=== PATIENT | female | born 1945 | race Caucasian/White ===

== ENCOUNTER 2017-09-14 00:40 | Observation (INO) ==
[2017-09-14] MEDS ORDERED: Morphine Sulfate Inj 8 MG/ML Vial IV.PUSH ONE (02:11)
[2017-09-14] MEDS ORDERED: Sod Chloride 0.9% Inj 1,000 ML IV.SIG ONE ×2 (02:11)
--- NOTE | 2017-09-14 02:30 | ED ---
HPI General Chief Complaint: Abdominal Pain Stated Complaint: Abd pain Time Seen by Provider: 09/14/17 02:00 History of Present Illness HPI narrative: Is a 72-year-old woman presents emerged department abdominal pains are about 5 PM today. Said nausea vomiting is been ongoing since his evening as well. This started after the abdominal pain. Abdominal pain started gradually, and has been worsening since onset. She had one episode of loose stools. No significant diarrhea. No urinary symptoms. Only abdominal surgical history is cholecystectomy and appendectomy. She does not use NSAIDs. She does not drink alcohol regularly she has some GERD history in the past but states this is been unchanged recently. Never had previous similar symptoms. No sick contacts. Related Data Home Medications Medication Instructions Recorded Confirmed amlodipine 5 mg PO DAILY 09/14/17 09/14/17 apixaban [Eliquis] 5 mg PO BID 09/14/17 09/14/17 aspirin 81 mg PO DAILY 09/14/17 09/14/17 benazepril 40 mg PO BID 09/14/17 09/14/17 escitalopram oxalate 20 mg PO DAILY 09/14/17 09/14/17 levothyroxine 75 mcg PO DAILY 09/14/17 09/14/17 metformin 850 mg PO BID 09/14/17 09/14/17 metoprolol succinate 50 mg PO BID 09/14/17 09/14/17 simvastatin 40 mg PO QPM 09/14/17 09/14/17 Allergies Allergy/AdvReac Type Severity Reaction Status Date / Time cefazolin Allergy Mild RASH Verified 09/14/17 01:30 Review of Systems ROS Unobtainable All other systems reviewed negative except as stated in HPI PMFSH History History Provided By: Patient and Family Member Medical History Medical History Anxiety (Acute) Diabetes (Acute) HLD (hyperlipidemia) (Acute) HTN (hypertension) (Acute) Hypothyroid (Acute) Pacemaker (Acute) Social History Social History Recent Travel in [facility] within the Last 8 Weeks: No Recent Out of Country Travel within the Last 8 Weeks: No Exam Narrative Exam Narrative: GENERAL: Well-appearing 72-year-old woman, appears uncomfortable , nontoxic. SKIN: Focused skin assessment warm/dry. HEAD: Atraumatic. Normocephalic. EYES: Pupils equal and round. No scleral icterus. No injection or drainage. ENT: No nasal bleeding or discharge. Mucous membranes pink and moist. NECK: Trachea midline. No JVD. CARDIOVASCULAR: Regular rate and rhythm. No murmur appreciated. RESPIRATORY: No accessory muscle use. Clear to auscultation. Breath sounds equal bilaterally. GASTROINTESTINAL: Abdomen is full, soft, minimal upper abdominal tenderness. No rebound or guarding. MUSCULOSKELETAL: No obvious deformities. No clubbing. No cyanosis. No edema. NEUROLOGICAL: Awake and alert. No obvious cranial nerve deficits. Motor grossly within normal limits. Normal speech. PSYCHIATRIC: Appropriate mood and affect; insight and judgment normal. Course Initial Documented Vital Signs Temperature 98.5 F 09/14/17 01:28 Pulse Rate 60 09/14/17 01:28 Respiratory Rate 20 09/14/17 01:28 Blood Pressure 164/100 H 09/14/17 01:28 Pulse Oximetry 99 09/14/17 01:28 Last Documented Vital Signs Temperature 98.5 F 09/14/17 01:28 Pulse Rate 80 09/14/17 01:30 Respiratory Rate 16 09/14/17 01:30 Blood Pressure 146/88 H 09/14/17 01:30 Pulse Oximetry 93 L 09/14/17 01:30 Medical Decision Making MDM Narrative Medical decision making narrative: 72-year-old woman, abdominal pain worsening since 5 PM, more upper, so she was some nausea and vomiting multiple episodes. She has her gallbladder out already. Mild GERD symptoms fairly benign exam. Will check labs, CT, UA, reassess. Feeling somewhat improved. Lactate is elevated, white count elevated, patient with unexplained severe epigastric pain. Given her age, high risk for occult disease, her abnormal labs, recommend observation. Lab Data Result diagrams: 09/14/17 02:30 09/14/17 02:30 Lab Results 09/14/17 09/14/17 09/14/17 Range/Units 02:30 02:30 02:30 WBC 15.6 H (4.0-11.0) th/mm3 RBC 5.09 (4.00-5.30) mil/mm3 Hgb 15.3 (11.6-15.3) gm/dL Hct 46.7 H (35.0-46.0) % MCV 91.8 (80.0-100.0) fL MCH 30.1 (27.0-34.0) pg MCHC 32.8 (32.0-36.0) % RDW 14.5 (11.6-17.2) % Plt Count 283 (150-450) th/mm3 MPV 8.6 (7.0-11.0) fL Neut % (Auto) 81.2 H (16.0-70.0) % Lymph % (Auto) 13.4 (9.0-44.0) % [place] % (Auto) 5.1 (0.0-8.0) % Eos % (Auto) 0.1 (0.0-4.0) % Baso % (Auto) 0.2 (0.0-2.0) % Neut # (Auto) 12.7 H (1.8-7.7) th/mm3 Lymph # (Auto) 2.1 (1.0-4.8) th/mm3 [place] # (Auto) 0.8 (0.0-0.9) th/mm3 Eos # (Auto) 0.0 (0.0-0.4) th/mm3 Baso # (Auto) 0.0 (0.0-0.2) th/mm3 WBC Differential . Differential Comment Auto diff final Sodium 134 L (136-145) meq/L Potassium 3.6 (3.5-5.1) meq/L Chloride 97 L (98-107) meq/L Carbon Dioxide 24.1 (21.0-32.0) meq/L Anion Gap 13 (5-15) meq/L BUN 11 (7-18) mg/dL Creatinine 0.74 (0.50-1.00) mg/dL Estimated GFR 77 L (>89) mL/min Random Glucose 187 H (74-106) mg/dL Lactic Acid 3.0 H (0.4-2.0) mmol/L Calcium 9.7 (8.5-10.1) mg/dL Total Bilirubin 0.3 (0.2-1.0) mg/dL AST 19 (15-37) U/L ALT 32 (10-53) U/L Alkaline Phosphatase 118 H (45-117) U/L Troponin I Less than 0.02 L (0.02-0.05) ng/mL Total Protein 8.0 (6.4-8.2) g/dL Albumin 4.4 (3.4-5.0) g/dL Lipase 114 (73-393) U/L Urine Color (Yellw/Straw) Urine Clarity (Clear) Urine pH (5.0-8.5) Ur Specific [place] (1.002-1.035) Urine Protein (Neg-Trace) mg/dL Urine Glucose (UA) (Negative) mg/dL Urine Ketones (Negative) mg/dL Urine Occult Blood (Negative) Urine Nitrate (Negative) Urine Bilirubin (Negative) Urine Urobilinogen (Less than 2) mg/dL Ur Leukocyte Esterase (Negative) Urine RBC (0-3) /hpf Urine WBC (0-5) /hpf Ur Squamous Epith Cells (0-5) /hpf Urine Mucus (Occasional) /lpf Micro UA Comment Urine Culture Comments 09/14/17 Range/Units 03:35 WBC (4.0-11.0) th/mm3 RBC (4.00-5.30) mil/mm3 Hgb (11.6-15.3) gm/dL Hct (35.0-46.0) % MCV (80.0-100.0) fL MCH (27.0-34.0) pg MCHC (32.0-36.0) % RDW (11.6-17.2) % Plt Count (150-450) th/mm3 MPV (7.0-11.0) fL Neut % (Auto) (16.0-70.0) % Lymph % (Auto) (9.0-44.0) % [place] % (Auto) (0.0-8.0) % Eos % (Auto) (0.0-4.0) % Baso % (Auto) (0.0-2.0) % Neut # (Auto) (1.8-7.7) th/mm3 Lymph # (Auto) (1.0-4.8) th/mm3 [place] # (Auto) (0.0-0.9) th/mm3 Eos # (Auto) (0.0-0.4) th/mm3 Baso # (Auto) (0.0-0.2) th/mm3 WBC Differential Differential Comment Sodium (136-145) meq/L Potassium (3.5-5.1) meq/L Chloride (98-107) meq/L Carbon Dioxide (21.0-32.0) meq/L Anion Gap (5-15) meq/L BUN (7-18) mg/dL Creatinine (0.50-1.00) mg/dL Estimated GFR (>89) mL/min Random Glucose (74-106) mg/dL Lactic Acid (0.4-2.0) mmol/L Calcium (8.5-10.1) mg/dL Total Bilirubin (0.2-1.0) mg/dL AST (15-37) U/L ALT (10-53) U/L Alkaline Phosphatase (45-117) U/L Troponin I (0.02-0.05) ng/mL Total Protein (6.4-8.2) g/dL Albumin (3.4-5.0) g/dL Lipase (73-393) U/L Urine Color Straw (Yellw/Straw) Urine Clarity Hazy H (Clear) Urine pH 8.0 (5.0-8.5) Ur Specific [place] 1.009 (1.002-1.035) Urine Protein 500 or greater (Neg-Trace) mg/dL Urine Glucose (UA) 150 H (Negative) mg/dL Urine Ketones 20 (Negative) mg/dL Urine Occult Blood Small H (Negative) Urine Nitrate Negative (Negative) Urine Bilirubin Negative (Negative) Urine Urobilinogen Less than 2 (Less than 2) mg/dL Ur Leukocyte Esterase Negative (Negative) Urine RBC 3 (0-3) /hpf Urine WBC 4 (0-5) /hpf Ur Squamous Epith Cells <1 (0-5) /hpf Urine Mucus Few H (Occasional) /lpf Micro UA Comment Culture not ind Urine Culture Comments Culture not ind Imaging Data Radiologist's impression: Abdomen/Pelvis CT 09/14/17 02:11 CONCLUSION: 1. Mild extrahepatic biliary ductal dilatation which has been described previously. Correlate with liver function lab studies. Pneumobilia which implies previous biliary intervention. Gallbladder surgically absent. 2. Distal colonic diverticulosis without definite findings of diverticulitis. 3. Minimal nonspecific free pelvic fluid. ECG Data Attestation: I personally reviewed and interpreted this ECG as follows: Interpretation: AV sequential pacing at a rate of 84, leftward axis, no definite evidence of acute ischemia. Discharge Plan Discharge Disposition Patient Disposition: 30 Still Patient Physicians Team ED Provider: Lenny Damian Primary Care Provider: Wimla Robledo Attending Provider: Shabnam Meeks Discharge Interventions Interventions: Vital Signs Last Done: 09/14/17 01:30 Status ED Status: Admitted Observation Patient
[2017-09-14 03:11] LABS: Alanine Aminotransferase 32 U/L (10-53); Albumin 4.4 g/dL (3.4-5.0); Anion Gap 13 meq/L (5-15); Aspartate Aminotransferase 19 U/L (15-37); Blood Urea Nitrogen 11 mg/dL (7-18); Calcium 9.7 mg/dL (8.5-10.1); Carbon Dioxide 24.1 meq/L (21.0-32.0); Chloride 97 meq/L (98-107); Glomerular Filtration Rate 77 mL/min (>89); Glucose,Random 187 mg/dL (74-106); Lipase 114 U/L (73-393); Potassium 3.6 meq/L (3.5-5.1); Sodium 134 meq/L (136-145)
[2017-09-14 03:15] LABS: Alkaline Phosphatase 118 U/L (45-117); Baso % (Auto) 0.2 % (0.0-2.0); Eos % (Auto) 0.1 % (0.0-4.0); Hematocrit 46.7 % (35.0-46.0); Hemoglobin 15.3 gm/dL (11.6-15.3); Lymph # (Auto) 2.1 th/mm3 (1.0-4.8); Lymph % (Auto) 13.4 % (9.0-44.0); Mean Corpuscular HGB Conc 32.8 % (32.0-36.0); Mean Corpuscular Hemoglobin 30.1 pg (27.0-34.0); Mean Corpuscular Volume 91.8 fL (80.0-100.0); Mean Platelet Volume 8.6 fL (7.0-11.0); Mono # (Auto) 0.8 th/mm3 (0.0-0.9); Mono % (Auto) 5.1 % (0.0-8.0); Neut # (Auto) 12.7 th/mm3 (1.8-7.7); Neut % (Auto) 81.2 % (16.0-70.0); Platelet Count 283 th/mm3 (150-450); Red Blood Count 5.09 mil/mm3 (4.00-5.30); Red Cell Distribution Width 14.5 % (11.6-17.2); White Blood Count 15.6 th/mm3 (4.0-11.0)
[2017-09-14 04:06] LABS: Bilirubin,Urine Negative (Negative); Clarity,Urine Hazy (Clear); Color,Urine Straw (Yellw/Straw); Glucose,Urine (UA) 150 mg/dL (Negative); Leukocyte Esterase,Urine Negative (Negative); Mucus,Urine Few /lpf (Occasional); Nitrite,Urine Negative (Negative); Specific Gravity,Urine 1.009 (1.002-1.035); Squamous Epithelial Cell,Urine <1 /hpf (0-5)
--- NOTE | 2017-09-14 05:15 | CT ---
EXAM DATE: 09/14/2017 3:49 AM EDT AGE/SEX: 72 years / Female INDICATIONS: Abdominal pain. CLINICAL DATA: This is the patient's initial encounter. Patient reports that signs and symptoms have been present for 2 days and indicates a pain score of 6/10. MEDICAL/SURGICAL HISTORY: Diabetes. Hypertension. Hyperthyroidism. Pacemaker. ORAL CONTRAST: No oral contrast ingested. RADIATION DOSE: 6.57 CTDI (mGy) COMPARISON: POI, US ABDOMEN COMPLETE, 01/30/2015. . TECHNIQUE: Multiple contiguous axial images were obtained through the abdomen and pelvis following b olus infusion of 71 ml Omnipaque 350 (iohexol) nonionic water-soluble contrast as a single exam dos e. No oral contrast ingested. Using automated exposure control and adjustment of the mA and/or kV ac cording to patient size, radiation dose was kept as low as reasonably achievable to obtain optimal di agnostic quality images. DICOM format image data is available electronically for review and comparis on. FINDINGS: Lower Lungs: The visualized lower lungs are clear. Liver: Pneumobilia is present. Gallbladder is surgically absent. The extrahepatic biliary tree is mil dly dilated which has been described previously. Common duct diameter approaches 14 mm. There is no e vidence of focal liver mass. Spleen: Homogeneous density without enlargement. Pancreas: Unremarkable without mass or calcification. Kidneys: Normal in size and shape. No evidence of mass or hydronephrosis. Adrenal Glands: Unremarkable. Aorta: The aorta and proximal iliac vessels are grossly unremarkable without aneurysmal dilation. Bowel/Mesentery: Prominent distal colonic diverticulosis. No definite focal inflammatory changes. No abnormal dilatation of bowel. Minimal free pelvic fluid. Abdominal Wall: Intact. Retroperitoneum: No evidence of adenopathy in the retrocrural, para-aortic, or deep pelvic regions. Bladder: Contours are smooth. Reproductive Organs: No abnormal masses or calcifications seen. Inguinal: The inguinal region is unremarkable without evidence of adenopathy. Bony Structures: Unremarkable. CONCLUSION: 1. Mild extrahepatic biliary ductal dilatation which has been described previously. Correlate with l iver function lab studies. Pneumobilia which implies previous biliary intervention. Gallbladder surgi thom absent. 2. Distal colonic diverticulosis without definite findings of diverticulitis. 3. Minimal nonspecific free pelvic fluid. Electronically signed by: Devendra Khan MD 09/14/2017 5:13 AM EDT
[2017-09-14] MEDS ORDERED: Dextrose 50% in Water 50 ML Vial IV.PUSH PRN (05:53)
[2017-09-14] MEDS ORDERED: Acetaminophen 325 MG Tablet PO PRN (05:55)
[2017-09-14] MEDS ORDERED: Bisacodyl 10 MG Supp RECTAL PRN (05:55)
[2017-09-14] MEDS ORDERED: Temazepam 15 MG Capsule PO PRN (05:55)
[2017-09-14] MEDS: Morphine Inj 4 MG/ML Vial IV.PUSH PRN ×3 (07:51→18:10)
[2017-09-14] MEDS: Sod Chloride 0.9% Inj 1,000 ML IV.CONT SCH ×2 (07:53→17:56)
[2017-09-14] MEDS: Levothyroxine 75 MCG Tablet PO SCH (08:37)
[2017-09-14] MEDS: Lisinopril 20 MG Tablet PO SCH ×2 (08:38→22:54)
[2017-09-14] MEDS: Senna/Docusate Sodium 8.6/50 MG Tablet PO SCH ×2 (08:38→22:53)
[2017-09-14] MEDS: amLODIPine 5 MG Tablet PO SCH (08:38)
[2017-09-14] MEDS: Insulin NovoLOG Aspart Correctional Sugar Inj SQ SCH ×4 (09:15→22:52)
--- NOTE | 2017-09-14 18:28 | P.HP ---
History of Present Illness Primary Care Physician: Wilma Robledo MD Chief Complaint: abdominal pain History of Present Illness: 72-year-old female with history of atrial fibrillation on Eliquis, cardiac pauses status post pacemaker, diabetes, hypertension, hyperlipidemia, hypothyroidism, tobacco use, presents with a one-day history of abdominal pain. The patient reports yesterday afternoon she went out for tacos at [facility] , and around 5 PM she started to develop diffuse upper crampy abdominal pain. She went home, and later had 3 episodes of nausea and vomiting with nonbloody emesis around 89 PM therefore she decided to come to the hospital. She also reports one episode of loose stools. Denies any hematochezia or melena. Denies any fevers or chills. Upon arrival to the ED, the patient had 2 more episodes of vomiting. She denies any urinary complaints. Denies any chest pain , palpitations, shortness of breath. She denies any sick contacts. Denies NSAID use. She sees Dr. Coleman with [facility], and recently had an unremarkable colonoscopy around 2 months ago. Her kiln mechanic is Dr. Pozo. Past Medical History: atrial fibrillation on Eliquis cardiac pauses status post pacemaker diabetes hypertension hyperlipidemia hypothyroidism anxiety Past Surgical History: Appendectomy Cholecystectomy Pacemaker placement Right leg femoral-popliteal bypass Colonoscopy Family history: Mother with emphysema Father with heart disease Social history: Has smoked tobacco 1 PPD on/off for 40 years, continues to smoke 1PPD currently Very seldom alcohol use every 1-2 months Denies any illicit drug use Review of Systems All other systems reviewed negative except as stated in HPI [facility] - History History Provided By: Patient - Medical History Medical History: Medical History (Last Reviewed 09/14/17 @ 02:30 by Lenny Damian MD) Anxiety Diabetes HLD (hyperlipidemia) HTN (hypertension) Hypothyroid Pacemaker - Tobacco History Second Hand Smoke Exposure: No Smoking Status: Current every day smoker Tobacco Type: Cigarettes - Alcohol History How Often Do You Have a Drink Containing Alcohol: Monthly or less - Substance Use History Substance History: No History of Abuse - Travel History Recent Travel in the [facility] Within the Last 8 Weeks: No Recent Travel Out of the Country Within the Last 8 Weeks: No Medications and Allergies Active Medications: Active Medications Acetaminophen (Tylenol) 650 mg PO Q4H PRN PRN Reason: Temp > 100.4 Al Hydroxide/Mg Hydroxide (Milk Of Magnesia Liq) 30 ml PO Q12H PRN PRN Reason: Mild Constipation Amlodipine Besylate (Norvasc) 5 mg PO DAILY [facility] Last Admin: 09/14/17 08:38 Dose: 5 mg Apixaban (Eliquis) 5 mg PO BID [facility] Last Admin: 09/14/17 08:39 Dose: 5 mg Aspirin (Aspirin Chew) 81 mg PO DAILY [facility] Last Admin: 09/14/17 08:44 Dose: Not Given Bisacodyl (Dulcolax Supp) 10 mg RECTAL DAILY PRN PRN Reason: SEVERE CONSITIPATION Dextrose (D50w Vial) 50 ml IV.PUSH UNSCH PRN PRN Reason: PER HYPOGLYCEMIA PROTOCOL Escitalopram Oxalate (Lexapro) 20 mg PO DAILY [facility] Last Admin: 09/14/17 08:39 Dose: 20 mg Glucagon (Glucagon Inj) 1 mg OTHER PRN PRN PRN Reason: for Hypoglycemia Protocol Sodium Chloride (Ns Inj) 1,000 mls @ 100 mls/hr IV.CONT .Q10H [facility] Last Admin: 09/14/17 07:53 Dose: 100 mls/hr Insulin Aspart (Novolog Insulin Suppl Scale Inj) 0 unit SQ ACHS [facility]; Protocol Last Admin: 09/14/17 14:32 Dose: Not Given Lactulose (Lactulose Liq) 30 ml PO DAILY PRN PRN Reason: SEVERE CONSITIPATION Levothyroxine Sodium (Synthroid) 75 mcg PO DAILY@0600 [facility] Last Admin: 09/14/17 08:37 Dose: 75 mcg Lisinopril (Prinivil) 40 mg PO BID [facility] Last Admin: 09/14/17 08:38 Dose: 40 mg Metoclopramide HCl (Reglan Inj) 5 mg IV.PUSH Q6HR PRN; Protocol PRN Reason: NAUSEA OR VOMITING Morphine Sulfate (Morphine Inj) 2 mg IV.PUSH Q4H PRN PRN Reason: PAIN SCALE 6 TO 10 Last Admin: 09/14/17 13:30 Dose: 2 mg Prochlorperazine Edisylate (Compazine Inj) 10 mg IV.PUSH Q6H PRN PRN Reason: NAUSEA/VOMITING Senna/Docusate Sodium (Kaylyn-Colace) 1 tab PO BID [facility] Last Admin: 09/14/17 08:38 Dose: 1 tab Sennosides (Senokot) 17.2 mg PO Q12H PRN PRN Reason: Moderate Constipation Sodium Chloride (Ns Flush) 2 ml IV.FLUSH PRN PRN PRN Reason: FLUSH AFTER USING IV ACCESS Temazepam (Restoril) 15 mg PO HS PRN PRN Reason: INSOMNIA Allergies Allergy/AdvReac Type Severity Reaction Status Date / Time cefazolin Allergy Mild RASH Verified 09/14/17 01:30 Home Medications Medication Instructions Recorded Confirmed Type amlodipine 5 mg PO DAILY 09/14/17 09/14/17 History apixaban [Eliquis] 5 mg PO BID 09/14/17 09/14/17 History aspirin 81 mg PO DAILY 09/14/17 09/14/17 History benazepril 40 mg PO BID 09/14/17 09/14/17 History escitalopram oxalate 20 mg PO DAILY 09/14/17 09/14/17 History levothyroxine 75 mcg PO DAILY 09/14/17 09/14/17 History metformin 850 mg PO BID 09/14/17 09/14/17 History metoprolol succinate 50 mg PO BID 09/14/17 09/14/17 History simvastatin 40 mg PO QPM 09/14/17 09/14/17 History Exam Vital signs: Vital Signs 09/14/17 01:28 09/14/17 01:30 09/14/17 07:15 Temperature 98.5 F Pulse Rate 60 80 88 Respiratory Rate 20 16 18 Blood Pressure 164/100 H 146/88 H 173/82 H Pulse Oximetry 99 93 L 93 L 09/14/17 08:36 09/14/17 11:18 09/14/17 16:00 Temperature 98.2 F Pulse Rate 64 100 H Respiratory Rate 18 18 18 Blood Pressure 184/86 H 162/81 H Pulse Oximetry 96 Intake & Output 09/13/17 09/14/17 09/14/17 18:59 06:59 18:59 Weight 68 kg 68 kg Other: Weight On Admission 68 kg Narrative: GENERAL: Well-nourished, well-developed pleasant elderly female patient in [facility]. SKIN: Warm and dry. No rash. HEAD: Normocephalic. Atraumatic. EYES: Pupils equal and round. No scleral icterus. No injection or drainage. ENT: No nasal bleeding or discharge. Mucous membranes pink and moist. NECK: Supple. Trachea midline. CARDIOVASCULAR: Regular rate and rhythm. No murmur appreciated. RESPIRATORY: No accessory muscle use. Clear to auscultation. Breath sounds equal bilaterally. GASTROINTESTINAL: Abdomen soft, non-tender, nondistended. Normoactive bowel sounds x4. MUSCULOSKELETAL: No obvious deformities. Extremities without clubbing, cyanosis , or edema. NEUROLOGICAL: Awake and alert. No obvious cranial nerve deficits. Motor grossly within normal limits. Normal speech. PSYCHIATRIC: Appropriate mood and affect; insight and judgment normal. Results - Labs CBC & Chem 7: 09/14/17 02:30 09/14/17 02:30 Labs: Laboratory Results - last 24 hr 09/14/17 09/14/17 09/14/17 02:30 02:30 02:30 WBC 15.6 H RBC 5.09 Hgb 15.3 Hct 46.7 H MCV 91.8 MCH 30.1 MCHC 32.8 RDW 14.5 Plt Count 283 MPV 8.6 Neut % (Auto) 81.2 H Lymph % (Auto) 13.4 [place] % (Auto) 5.1 Eos % (Auto) 0.1 Baso % (Auto) 0.2 Neut # (Auto) 12.7 H Lymph # (Auto) 2.1 [place] # (Auto) 0.8 Eos # (Auto) 0.0 Baso # (Auto) 0.0 WBC Differential . Differential Comment Auto diff final Sodium 134 L Potassium 3.6 Chloride 97 L Carbon Dioxide 24.1 Anion Gap 13 BUN 11 Creatinine 0.74 Estimated GFR 77 L POC Glucose Random Glucose 187 H Lactic Acid 3.0 H Calcium 9.7 Total Bilirubin 0.3 AST 19 ALT 32 Alkaline Phosphatase 118 H Troponin I Less than 0.02 L Total Protein 8.0 Albumin 4.4 Lipase 114 Urine Color Urine Clarity Urine pH Ur Specific [place] Urine Protein Urine Glucose (UA) Urine Ketones Urine Occult Blood Urine Nitrate Urine Bilirubin Urine Urobilinogen Ur Leukocyte Esterase Urine RBC Urine WBC Ur Squamous Epith Cells Urine Mucus Micro UA Comment Urine Culture Comments 09/14/17 09/14/17 09/14/17 03:35 09:13 14:27 WBC RBC Hgb Hct MCV MCH MCHC RDW Plt Count MPV Neut % (Auto) Lymph % (Auto) [place] % (Auto) Eos % (Auto) Baso % (Auto) Neut # (Auto) Lymph # (Auto) [place] # (Auto) Eos # (Auto) Baso # (Auto) WBC Differential Differential Comment Sodium Potassium Chloride Carbon Dioxide Anion Gap BUN Creatinine Estimated GFR POC Glucose 108 98 Random Glucose Lactic Acid Calcium Total Bilirubin AST ALT Alkaline Phosphatase Troponin I Total Protein Albumin Lipase Urine Color Straw Urine Clarity Hazy H Urine pH 8.0 Ur Specific [place] 1.009 Urine Protein 500 or greater Urine Glucose (UA) 150 H Urine Ketones 20 Urine Occult Blood Small H Urine Nitrate Negative Urine Bilirubin Negative Urine Urobilinogen Less than 2 Ur Leukocyte Esterase Negative Urine RBC 3 Urine WBC 4 Ur Squamous Epith Cells <1 Urine Mucus Few H Micro UA Comment Culture not ind Urine Culture Comments Culture not ind - Imaging Impressions Abdomen/Pelvis CT 09/14/17 02:11 CONCLUSION: 1. Mild extrahepatic biliary ductal dilatation which has been described previously. Correlate with liver function lab studies. Pneumobilia which implies previous biliary intervention. Gallbladder surgically absent. 2. Distal colonic diverticulosis without definite findings of diverticulitis. 3. Minimal nonspecific free pelvic fluid. Caprini VTE Risk Assessment Caprini VTE Risk Assessment: Moderate/High Risk (score >= 2) Caprini Risk Assessment Model: Point Value = 1 Point Value = 2 Point Value = 3 Point Value = 5 Age 41-60 Minor surgery BMI > 25 kg/m2 Swollen legs Varicose veins or History of unexplained or recurrent spontaneous Oral contraceptives or hormone replacement Sepsis (< 1 month) Serious lung disease, including pneumonia (< 1 month) Abnormal pulmonary function Acute myocardial infarction Congestive heart failure (< 1 month) History of inflammatory bowel disease Medical patient at bed rest Age 61-74 Arthroscopic surgery Major open surgery (> 45 min) Laparoscopic surgery (> 45 min) Malignancy Confined to bed (> 72 hours) Immobilizing plaster cast Central venous access Age >= 75 History of VTE Family history of VTE Factor V Leiden Prothrombin [id number] Lupus anticoagulant Anticardiolipin antibodies Elevated serum homocysteine Heparin-induced thrombocytopenia Other congenital or acquired thrombophilia Stroke (< 1 month) Elective arthroplasty Hip, pelvis, or leg fracture Acute spinal cord injury (< 1 month) Prophylaxis Regimen: Total Risk Factor Score Risk Level Prophylaxis Regimen 0-1 Low Early ambulation 2 Moderate Order ONE of the following: *Sequential Compression Device (SCD) *Heparin 5000 units SQ BID 3-4 Higher Order ONE of the following medications: *Heparin 5000 units SQ TID *Enoxaparin/Lovenox 40 mg SQ daily (WT < 150 kg, CrCl > 30 mL/min) *Enoxaparin/Lovenox 30 mg SQ daily (WT < 150 kg, CrCl > 10-29 mL/min) *Enoxaparin/Lovenox 30 mg SQ BID (WT < 150 kg, CrCl > 30 mL/min) AND/OR *Sequential Compression Device (SCD) 5 or more Highest Order ONE of the following medications: *Heparin 5000 units SQ TID (Preferred with Epidurals) *Enoxaparin/Lovenox 40 mg SQ daily (WT < 150 kg, CrCl > 30 mL/min) *Enoxaparin/Lovenox 30 mg SQ daily (WT < 150 kg, CrCl > 10-29 mL/min) *Enoxaparin/Lovenox 30 mg SQ BID (WT < 150 kg, CrCl > 30 mL/min) AND *Sequential Compression Device (SCD) Assessment and Plan - Plan 72-year-old female with history of atrial fibrillation on Eliquis, cardiac pauses status post pacemaker, diabetes, hypertension, hyperlipidemia, hypothyroidism, tobacco use, presents with a one-day history of abdominal pain. Abdominal Pain/Nausea/Vomiting: suspect gastroenteritis. Afebrile however + leukocytosis and lactic acid 3.0 -CT abd/pelvis reviewed, shows mild extrahepatic biliary ductal dilatation; gallbladder surgical absent; distal colonic diverticulosis without diverticulitis -LFTs and lipase wnl -UA unremarkable -Check stool studies if any diarrhea -Supportive treatment with IVF, antiemetics prn, and pain control with IV morphine prn -Diabetic diet -If symptoms worsen, consider GI consult to Dr. Coleman, otherwise can follow up as outpatient -With risk factors for CAD (HTN, DM, tobacco use, PVD), check serial cardiac enzymes to rule out atypical presentation of ACS in this female diabetic patient Sepsis/Lactic Acidosis: patient meets sepsis criteria with leukocytosis WBC 15.6K, tachycardia HR 100, lactic acid 3.0, and suspected source- gastroenteritis as above. -give IVF hydration -repeat labs Atrial Fibrillation: chronic. Hx of cardiac pauses/syncope, s/p pacemaker. Follows with kiln mechanic Dr. Pozo. -continue patient's anticoagulation with aspirin and Eliquis -continue patient's metoprolol -monitor on telemetry Diabetes Mellitus: chronic -hold patient's metformin -monitor Accu-checks and cover with SSI Hypertension/hyperlipidemia: chronic, BP currently elevated -continue home meds including BB, ROMAINE, statin -monitor BP, adjust antihypertensives as needed Hypothyroidism: chronic -continue patient's synthroid Tobacco Use: chronic, smokes 1 PPD currently -counseled on cessation -nicotine patch PVD: s/p right fem-pop bypass with Dr. Diaz -continue patient's anticoagulation with aspirin and Eliquis -again strongly advised to stop smoking DVT Prophylaxis: on Eliquis Discussed Condition With: Patient, Patient's sons at bedside, Jesus CARDONA
[2017-09-14 21:40] LABS: Creatine Kinase 62 U/L (26-192)
[2017-09-15] MEDS: Sod Chloride 0.9% Inj 1,000 ML IV.CONT SCH (03:49)
[2017-09-15] MEDS: Levothyroxine 75 MCG Tablet PO SCH (07:28)
[2017-09-15] MEDS: amLODIPine 5 MG Tablet PO SCH (08:12)
[2017-09-15] MEDS: Senna/Docusate Sodium 8.6/50 MG Tablet PO SCH (08:12)
--- NOTE | 2017-09-15 08:31 | P.PN ---
Subjective Interval history: Follow up for abdominal pain/nausea/vomiting. The patient reports feeling much better today. Denies any further abdominal pain, nausea/vomiting. Denies any fevers or chills. He tolerated oral intake last night. She wants to go home. Discussed importance of following up with her environmental research project manager Dr. Coleman, to consider further evaluation with EGD. Discussed with the patient's son at bedside. Also discussed importance of smoking cessation. Physical Exam Vital signs: Vital Signs 09/14/17 08:36 09/14/17 11:18 09/14/17 16:00 Temperature 98.2 F Pulse Rate 64 100 H Respiratory Rate 18 18 18 Blood Pressure 184/86 H 162/81 H Pulse Oximetry 96 09/14/17 20:00 09/15/17 00:00 09/15/17 04:00 Temperature 98 F 97.9 F 98 F Pulse Rate 60 65 78 Respiratory Rate 20 18 20 Blood Pressure 147/67 H 146/68 H 144/62 H Pulse Oximetry 93 L 96 95 09/15/17 07:14 Temperature 98.1 F Pulse Rate 67 Respiratory Rate 18 Blood Pressure 181/81 H Pulse Oximetry 95 Intake & Output 09/14/17 09/15/17 09/15/17 18:59 06:59 18:59 Intake Total 1000 / 1000 Balance 1000 / 1000 Weight 68 kg Intake: IV 1000 / 1000 NS Inj 1,000 ML @ 100 mls/hr IV 1000 / 1000 .CONT .Q10H [facility] Rx#:[id number] Other: Weight On Admission 68 kg Narrative: GENERAL: Well-nourished, well-developed pleasant elderly female patient in [facility]. SKIN: Warm and dry. No rash. HEENT: Normocephalic. Atraumatic. Pupils equal and round. Mucous membranes pink and moist. CARDIOVASCULAR: Regular rate and rhythm. No murmur appreciated. RESPIRATORY: No accessory muscle use. Clear to auscultation. Breath sounds equal bilaterally. GASTROINTESTINAL: Abdomen soft, non-tender, nondistended. Normoactive bowel sounds x4. MUSCULOSKELETAL: No obvious deformities. Extremities without clubbing, cyanosis , or edema. NEUROLOGICAL: Awake and alert. No obvious cranial nerve deficits. Motor grossly within normal limits. Moving all extremities spontaneously. Normal speech. PSYCHIATRIC: Appropriate mood and affect; insight and judgment normal. Results - Labs CBC & Chem 7: 09/15/17 08:19 09/15/17 08:19 Laboratory Results - last 24 hr 09/14/17 09/14/17 09/14/17 09:13 14:27 18:25 POC Glucose 108 98 164 H Total Creatine Kinase Troponin I 09/14/17 09/14/17 09/15/17 20:44 21:49 08:15 POC Glucose 101 136 H Total Creatine Kinase 62 Troponin I Less than 0.02 L Assessment and Plan - Plan 72-year-old female with history of atrial fibrillation on Eliquis, cardiac pauses status post pacemaker, diabetes, hypertension, hyperlipidemia, hypothyroidism, tobacco use, presents with a one-day history of abdominal pain. Abdominal Pain/Nausea/Vomiting: suspect gastroenteritis. Afebrile however + leukocytosis and lactic acid 3.0, -CT abd/pelvis reviewed, shows mild extrahepatic biliary ductal dilatation; gallbladder surgical absent; distal colonic diverticulosis without diverticulitis -LFTs and lipase wnl -UA unremarkable -Check stool studies if any diarrhea, no further loose stools -Supportive treatment with IVF, antiemetics prn, and pain control with IV morphine prn -Diabetic diet -With female diabetic and risk factors for CAD (HTN, DM, tobacco use, PVD), ruled out atypical presentation of ACS with serial cardiac enzymes x2 -Symptoms resolved -Repeat labs show much improvement, stable for discharge -Outpatient f/up with Dr. Coleman upon discharge Sepsis/Lactic Acidosis: patient meets sepsis criteria with leukocytosis WBC 15.6K, tachycardia HR 100, lactic acid 3.0, and suspected source- gastroenteritis as above. -give IVF hydration -repeat labs show much improvement, lactic acid 0.8, WBC 11.3K -resolved, stable for discharge Atrial Fibrillation: chronic. Hx of cardiac pauses/syncope, s/p pacemaker. Follows with baked and graphite inspector Dr. Pozo. -continue patient's anticoagulation with aspirin and Eliquis -continue patient's metoprolol -monitor on telemetry Diabetes Mellitus: chronic -hold patient's metformin -monitor Accu-checks and cover with SSI Hypertension/hyperlipidemia: chronic, BP currently elevated -continue home meds including BB, ROMAINE, statin -monitor BP, adjust antihypertensives as needed Hypothyroidism: chronic -continue patient's synthroid Tobacco Use: chronic, smokes 1 PPD currently -counseled on cessation -nicotine patches provided PVD: s/p right fem-pop bypass with Dr. Diaz -continue patient's anticoagulation with aspirin and Eliquis -again strongly advised to stop smoking DVT Prophylaxis: on Eliquis Discharge Planning: Discharge patient to home Condition on discharge: Stable Heart Healthy/Diabetic diet as tolerated Ad Radha activity Rx written: nicotine patch Follow-up with primary care physician and environmental research project manager Dr. Coleman
[2017-09-15 08:40] LABS: Baso % (Auto) 0.3 % (0.0-2.0); Eos # (Auto) 0.1 th/mm3 (0.0-0.4); Eos % (Auto) 0.9 % (0.0-4.0); Hemoglobin 13.4 gm/dL (11.6-15.3); Lymph # (Auto) 2.9 th/mm3 (1.0-4.8); Lymph % (Auto) 25.5 % (9.0-44.0); Mean Corpuscular HGB Conc 32.8 % (32.0-36.0); Mean Corpuscular Hemoglobin 30.1 pg (27.0-34.0); Mean Corpuscular Volume 91.9 fL (80.0-100.0); Mono % (Auto) 8.8 % (0.0-8.0); Neut # (Auto) 7.3 th/mm3 (1.8-7.7); Neut % (Auto) 64.5 % (16.0-70.0); Platelet Count 242 th/mm3 (150-450); Red Blood Count 4.46 mil/mm3 (4.00-5.30); Red Cell Distribution Width 14.2 % (11.6-17.2); White Blood Count 11.3 th/mm3 (4.0-11.0)
[2017-09-15 08:56] LABS: Anion Gap 10 meq/L (5-15); Blood Urea Nitrogen 9 mg/dL (7-18); Calcium 9.1 mg/dL (8.5-10.1); Carbon Dioxide 27.5 meq/L (21.0-32.0); Chloride 105 meq/L (98-107); Glomerular Filtration Rate Greater Than 89 mL/min (>89); Glucose,Random 112 mg/dL (74-106); Potassium 3.9 meq/L (3.5-5.1); Sodium 142 meq/L (136-145)
--- NOTE | 2017-09-15 12:07 | ECG ---
Date Performed: 09/14/2017 Time Performed: 04:33:27 PTAGE: 72 years EKG: ELECTRONIC ATRIAL PACEMAKER ELECTRONIC VENTRICULAR PACEMAKER ABNORMAL RHYTHM ECG PREVIOUS TRACING : 05/10/2014 11.00 DOCTOR: Adelso Mccarthy Interpretating Date/Time 09/15/2017 12:03:19
== END 2017-09-15 09:54 | disposition home or self-care (01) ==
LOC: NEPHCDU 00:40 → NEPE 00:40 → NEDA 00:40 → UNDODISOB 11:12 → NEDA 15:26 → NEPHCDU 16:14
PROVIDERS: ADMIT Internal Medicine; ATTEND Internal Medicine